=== PATIENT | female | born 1950 | race Caucasian/White ===

== ENCOUNTER → 2019-08-31 | Outpatient (CLI) | payer OTHER | END | disposition home or self-care (01) | LOC: SHCH 13:29 | PROVIDERS: ATTEND Internal Medicine Cardiovascular Disease | DX: I08.2 Rheumatic disorders of both aortic and tricuspid valves (principal); I25.2 Old myocardial infarction | CPT/HCPCS: 93306; 93356 ==

== ENCOUNTER → 2025-03-01 | Outpatient (CLI) | payer OTHER ==
--- NOTE | 2025-03-04 07:48 | HMCIMG ---
EXAM: CT Cervical Spine Without IV Contrast CLINICAL HISTORY: Pain. TECHNIQUE: Thin collimated axial CT images of the cervical spine were obtained, with sagittal and coronal reformatted images also submitted. A CT scan is done according to ALARA (As Low As Reasonably Achievable). CONTRAST: None. COMPARISON: None provided. FINDINGS: No acute fracture. Loss of the normal cervical lordosis. Multilevel anterior osteophytes. Normal vertebral body heights. Moderate reduction in C4-C5 and C5-C6 intervertebral disc heights. Mild reduction in C3-C4 and C6-C7 intervertebral disc heights. Multilevel facet arthropathy and uncovertebral joint hypertrophy. Decreased bone mineralization. The surrounding soft tissues are unremarkable. Level by level, disease is present as follows: C1-C2: No osteoarthritis. C2-C3: Mild disc bulge of 2 mm. No neural foramina, lateral recess, or spinal canal stenosis. C3-C4: Mild disc bulge of 2 mm. No neural foramina, lateral recess, or spinal canal stenosis. C4-C5: Moderate posterior disc osteophyte complex of 2.5 mm indenting the anterior thecal sac. Mild narrowing of both the lateral recess and neural foramina. No spinal canal narrowing. C5-C6: Moderate posterior disc osteophyte complex of 2.5 mm indenting the anterior thecal sac. Mild narrowing of both the lateral recess and neural foramina. No spinal canal narrowing. C6-C7: Mild posterior disc osteophyte complex of 2 mm. No neural foramina, lateral recess, or spinal canal stenosis. C7-T1: No disc bulge or herniation. No neural foraminal, lateral recess, or spinal canal stenosis. IMPRESSIONS: No acute fracture or subluxation. Osteopenia. Loss of the normal cervical lordosis could be secondary to muscular spasm. Moderate reduction in C4-C5 and C5-C6 intervertebral disc heights. Mild reduction in C3-C4 and C6-C7 intervertebral disc heights. Multilevel facet arthropathy and uncovertebral joint hypertrophy. Moderate spondylosis is most pronounced at the C4-C5 and C5-C6 levels, with moderate posterior disc osteophyte complexes indenting the anterior thecal sac. Mild narrowing of both the lateral recesses and neuroforamina at these levels. No significant spinal canal narrowing. /[place]
== END | disposition home or self-care (01) ==
LOC: RAH 10:06
PROVIDERS: ATTEND Internal Medicine
DX: M47.812 Spondylosis without myelopathy or radiculopathy, cervical region (principal); M50.31 Other cervical disc degeneration, high cervical region; M48.02 Spinal stenosis, cervical region; M25.78 Osteophyte, vertebrae
CPT/HCPCS: 72125